=== PATIENT | female | born 1985 | race Asian ===

== ENCOUNTER 2017-02-12 15:35 | Emergency (ER) | payer OTHER ==
[~2017-02-12] VITALS: Ht 163 cm; Wt 50.0 kg
[2017-02-12 15:40] VITALS: TEMP 99.5
[2017-02-12 17:06] VITALS: BP 131/79; PULSE 100
== END 2017-02-12 17:10 | disposition home or self-care (01) ==
LOC: COL.ER 15:35
DX: S46.912A Strain of unspecified muscle, fascia and tendon at shoulder and upper arm level, left arm, initial encounter (principal); S60.212A Contusion of left wrist, initial encounter; V43.52XA Car driver injured in collision with other type car in traffic accident, initial encounter; Y93.I9 Activity, other involving external motion